=== PATIENT | female | born 1965 | race Caucasian/White ===

== ENCOUNTER → 2017-11-27 | Outpatient (CLI) | payer MEDICARE, OTHER ==
--- NOTE | 2017-11-27 10:47 | Diagnostic Imaging Report ---
PROCEDURE:US GALLBLADDER COMPARISON:None. INDICATIONS:ACUTE GASTRITIS W/O BLEEDING TECHNIQUE: Best-scale and color doppler transverse and longitudinal images of the right upper quadrant of the abdomen were obtained. FINDINGS: Liver: 15.8 cm in right mid-clavicular line. Normal parenchymal echogenicity. No masses. Main portal vein: 0.9 cm. Hepatopedal flow. Gallbladder: Unremarkable in sonographic appearance without shadowing calculus, wall thickening, or pericholecystic fluid. Common Bile Duct: 0.6 cm Sonographic Kiran's sign: Reported as negative. Right kidney: 11.6 cm. Normal renal cortical echogenicity. No solid masses or hydronephrosis. Pancreas: The visualized portions are unremarkable. Inferior vena cava: Patent Aorta: Non-aneurysmal Ascites: None in the right upper quadrant of the abdomen. CONCLUSION: Unremarkable right upper quadrant ultrasound. Dictated by: Rohith Tsang M.D. on 11/27/2017 at 10:56 Electronically approved by: Rohith Tsang M.D. on 11/27/2017 at 10:56
--- NOTE | 2017-11-27 10:49 | Diagnostic Imaging Report ---
PROCEDURE:KNEES STANDING AP VIEW COMPARISON:None. INDICATIONS:OSTEOARTHRITIS FINDINGS: No acute, displaced fracture or dislocation. Mild symmetric medial compartment predominant joint space narrowing. Embolization coils project over the lateral aspect of the distal right femoral metaphysis. Dystrophic right lateral thigh soft tissue calcifications. Soft tissues otherwise unremarkable. CONCLUSION: No acute osseous abnormality. Mild symmetric medial compartment degenerative joint disease. Dictated by: Rohith Tsang M.D. on 11/27/2017 at 10:57 Electronically approved by: Rohith Tsang M.D. on 11/27/2017 at 10:57
== END ==
LOC: US 08:42
PROVIDERS: ATTEND Family Medicine
DX: K29.00 Acute gastritis without bleeding (principal)
CPT/HCPCS: 73565; 76705

== ENCOUNTER → 2018-03-13 | Outpatient (CLI) | payer OTHER | LOC: RAD 08:16 | PROVIDERS: ATTEND Family Medicine | DX: I89.0 Lymphedema, not elsewhere classified (principal) | CPT/HCPCS: 93925; 93970 ==